=== PATIENT | male | born 1945 | race Caucasian/White ===

== ENCOUNTER 2019-01-27 15:30 | Emergency (ER) | payer MEDICARE, BC ==
[2019-01-27 15:51] VITALS: BP 123/68
--- NOTE | 2019-01-27 16:09 | UC ---
Dental HPI - HPI Summary HPI Summary: At noon today pt. was eating after a dental procedure and accidentally bit the L side of his tongue. Noticed it was bleeding and he could not stop it. Took Xarelto med today. Also on ASA. Denies severe pain or tongue swelling. Denies choking sensation, coughing, dizziness, LRAIOS. - History of Current Complaint Chief Complaint: UCLaceration Stated Complaint: TONGUE LACERATION Time Seen by Provider: 01/27/19 15:59 Hx Obtained From: Patient Onset/Duration: Sudden Onset Pain Intensity: 2 Pain Scale Used: 0-10 Numeric Aggravating Factor(s): Other - blood thinner meds Alleviating Factor(s): Nothing - Allergies/Home Medications Allergies/Adverse Reactions: Allergies Allergy/AdvReac Type Severity Reaction Status Date / Time No Known Allergies Allergy Verified 01/27/19 15:42 PMH/Surg Hx/FS Hx/Imm Hx Cardiovascular History: Hypertension, Atrial Fibrillation - Surgical History Surgical History: Yes Surgery Procedure, Year, and Place: appendix - Social History Alcohol Use: Daily Substance Use Type: None Smoking Status (MU): Never Smoked Tobacco Review of Systems All Other Systems Reviewed And Are Negative: Yes Constitutional: Negative: Fever, Fatigue Skin: Negative: Rash ENT: Positive: Other - +tongue bleeding/laceration. Negative: Dental Pain, Sore Throat Respiratory: Negative: Cough Cardiovascular: Negative: Palpitations Neurological: Negative: Headache, Weakness Physical Exam Triage Information Reviewed: Yes Appearance: Well-Appearing Vital Signs: Initial Vital Signs Temp 98.3 F 01/27/19 15:43 Pulse 93 01/27/19 15:43 Resp 18 01/27/19 15:43 BP 123/68 01/27/19 15:43 Pulse Ox 96 01/27/19 15:43 ENT: Positive: Pharynx normal, Uvula midline, Other - No tongue swelling and able to swallow. L part of tongue edge is bruised and a small <1cm laceration noted w/ active slow bleeding. Dental: Positive: Bleeding - tongue Neck: Positive: Supple Neurological: Positive: Alert, Other: - normal speech Dental Complaint Course/Dx - Course Course Of Treatment: <1cm laceration in L aspect of tongue after accidental biting. Tongue was still numb from dental procedure earlier today. We tried direct pressure to stop bleeding. He is hemodynamically stable and there is no tongue swelling at this point. Due to his Xarelto med he took today and difficulty stopping bleeding, it was thought he would be safer at the ED after discussion w/ Supervising MD. He declined ambulance. Of note called ED and spoke w/ charge nurse and let her know he was on his way. No neuro deficits at this time. - Differential Dx/Diagnosis Provider Diagnosis: Tongue laceration Discharge - Sign-Out/Discharge Documenting (check all that apply): Patient Departure All imaging exams completed and their final reports reviewed: No Studies - Discharge Plan Condition: Good Disposition: HOME Patient Education Materials: Laceration (ED) Referrals: Edson Apodaca MD [Primary Care Provider] - Additional Instructions: Please go straight to the Emergency room for evaluation. Since you are on blood thinners and this is a bite wound is difficult to stop bleeding this makes it difficult to treat here. - Billing Disposition and Condition Condition: GOOD Disposition: Home
== END 2019-01-27 16:21 | disposition home or self-care (01) ==
LOC: UCCORT 15:30
DX: S01.512A Laceration without foreign body of oral cavity, initial encounter (principal); X58.XXXA Exposure to other specified factors, initial encounter; I10 Essential (primary) hypertension; I48.91 Unspecified atrial fibrillation; Z79.02 Long term (current) use of antithrombotics/antiplatelets; Z79.82 Long term (current) use of aspirin
CPT/HCPCS: 99212; G0463

== ENCOUNTER 2019-05-07 08:34 | Emergency (ER) | payer MEDICARE, BC ==
[2019-05-07 09:09] VITALS: BP 118/70
--- NOTE | 2019-05-07 09:38 | UC ---
Skin Complaint HPI - HPI Summary HPI Summary: Pt present with c/o sudden onset of pain and itching to left foot between the great toe and second toe that began this morning at ~ 0400. Pt denies injury, insect or animal bite. Pt states the skin is itchy and painful. Pt called 911 and [facility] arrived, evaluated him and told him to follow up here if his symptoms continued. - History of Current Complaint Chief Complaint: UCGeneralIllness Time Seen by Provider: 05/07/19 09:22 Stated Complaint: LEFT FOOT PAIN Hx Obtained From: Patient Onset/Duration: Sudden Onset, Still Present Skin Exposure Onset/Duration: Hours Ago Timing: Constant Onset Severity: Severe Current Severity: Mild Pain Intensity: 5 Location: Discrete - left foot between great toe and second toe Character: Pruritus, Pain, Redness Aggravating Factor(s): Touch Alleviating Factor(s): Other - pt applied vicks vapor rub per the EMT recommendation to help resolve the pt's tinea pedis Associated Signs & Symptoms: Positive: Rash, Tenderness - Allergy/Home Medications Allergies/Adverse Reactions: Allergies Allergy/AdvReac Type Severity Reaction Status Date / Time No Known Allergies Allergy Verified 05/07/19 08:57 PMH/Surg Hx/FS Hx/Imm Hx Previously Healthy: Yes Cardiovascular History: Cardiac Disease - Surgical History Surgical History: Yes Surgery Procedure, Year, and Place: appendix - Family History Known Family History: Positive: Cardiac Disease - Social History Occupation: Retired Lives: With Family Alcohol Use: None Alcohol Amount: none past 2-3 months. Substance Use Type: None Smoking Status (MU): Former Smoker Have You Smoked in the Last Year: No When Did the Patient Quit Smoking/Using Tobacco: 35 years ago Review of Systems All Other Systems Reviewed And Are Negative: Yes Constitutional: Positive: Negative Skin: Positive: Other - erythema Eyes: Positive: Negative ENT: Positive: Negative Respiratory: Positive: Negative Cardiovascular: Positive: Negative Gastrointestinal: Positive: Negative Genitourinary: Positive: Negative Motor: Positive: Negative Neurovascular: Positive: Negative Musculoskeletal: Positive: Negative Neurological: Positive: Negative Psychological: Positive: Negative Is Patient Immunocompromised?: No Physical Exam Triage Information Reviewed: Yes Appearance: Well-Appearing Vital Signs: Initial Vital Signs Temp 97.2 F 05/07/19 08:58 Pulse 103 05/07/19 08:58 Resp 16 05/07/19 08:58 BP 118/70 05/07/19 08:58 Pulse Ox 99 05/07/19 08:58 Vital Signs Reviewed: Yes Eye Exam: Normal ENT: Positive: Hearing grossly normal Respiratory: Positive: No respiratory distress Musculoskeletal Exam: Normal Musculoskeletal: Positive: Edema @ - mild swelling distal left foot, Neurological Exam: Normal Psychological Exam: Normal Skin Exam: Other - mild erythema to bilateral feet, dorsal aspect, between toes , pt applied vicks prior to arrival however, skin is peeling between toes, tinea like in appearance. Course/Dx - Course Course Of Treatment: I discussed with the pt the need to f/u with his PCP and if his symptoms did not improve to return here or f/u with PCP. He verbalized understanding and agreed to plan of care. - Differential Diagnoses - Skin Complaint Differential Diagnoses: Cellulitis, Tinea - Diagnoses Provider Diagnosis: Tinea pedis, left Discharge ED - Sign-Out/Discharge Documenting (check all that apply): Patient Departure All imaging exams completed and their final reports reviewed: No Studies - Discharge Plan Condition: Stable Disposition: HOME Patient Education Materials: Athlete's Foot (ED) Referrals: Edson Apodaca MD [Primary Care Provider] - - Billing Disposition and Condition Condition: STABLE Disposition: Home
== END 2019-05-07 09:52 | disposition home or self-care (01) ==
LOC: UCCORT 08:34
DX: B35.3 Tinea pedis (principal); Z87.891 Personal history of nicotine dependence
CPT/HCPCS: 99212; G0463